=== PATIENT | male | born 1955 | race African-American/Black ===

== ENCOUNTER 2017-06-18 10:10 | Inpatient (IN) | payer OTHER ==
[2017-06-16 11:21] LABS: BASOPHILS % 0.2 % (0.0-1.0); EOSINOPHILS % 0.9 % (0.0-6.0); HEMOGLOBIN 14.3 g/dL (14.0-18.0); LYMPHOCYTES # (AUTO) 1.3 (1.0-3.2); LYMPHOCYTES % 31.2 % (18.0-39.1); MEAN CORPUSCULAR HEMOGLOBIN 29.3 pg (28-32); MEAN CORPUSCULAR HGB CONC 33.3 g/dL (31-35); MEAN CORPUSCULAR VOLUME 88.1 fL (81-99); MONOCYTES # (AUTO) 0.4 (0.2-0.8); MONOCYTES % 9.8 % (4.4-11.3); NEUTROPHILS # (AUTO) 2.5 (2.1-6.9); NEUTROPHILS % 57.7 % (38.7-80.0); PLATELET COUNT 190 x10e3/uL (140-360); RED BLOOD COUNT 4.88 x10e6/uL (4.3-5.7); RED CELL DISTRIBUTION WIDTH 13.2 % (11.7-14.4)
[2017-06-16 11:42] LABS: ALANINE AMINOTRANSFERASE 24 IU/L (0-55); ALBUMIN/GLOBULIN RATIO 1.2 (0.8-2.0); ALKALINE PHOSPHATASE 58 IU/L (40-150); ANION GAP 12.7 mmol/L (8-16); BLOOD UREA NITROGEN 10 mg/dL (7-26); BUN/CREATININE RATIO 9 (6-25); CALCIUM 9.3 mg/dL (8.4-10.2); CARBON DIOXIDE 27 mmol/L (22-29); CHLORIDE 105 mmol/L (98-107); CREATININE, SERUM 1.11 mg/dL (0.72-1.25); EST GLOMERULAR FILTRATION RATE > 60 ML/MIN (60-); GLUCOSE 83 mg/dL (74-118); POTASSIUM 4.7 mmol/L (3.5-5.1); SODIUM 140 mmol/L (136-145)
[~2017-06-18] VITALS: Ht 172.7 cm; Wt 86.2 kg
[~2017-06-18 10:10] MED LIST: AVODART PO; CARDURA PO; DOXAZOSIN MESYLA4 MG PO; GREEN TEA1 EACH PO; MULTIVITAMIN PO; NIACIN PO; PANTOPRAZOLE SO40 MG PO; SAW PALMETTO PO; VALTREX PO
[2017-06-18] MEDS ORDERED: CEFAZOLIN SOD 1 GM/NS 50ML 50 ML IV ONE (11:27)
[2017-06-18] MEDS ORDERED: BACITRACIN 50,000 UNIT VIAL ONE (14:22)
[2017-06-18] MEDS ORDERED: ACETAMINOPHEN 1000 MG/100 ML 100 ML IV ONE (14:51)
[2017-06-18] MEDS ORDERED: DIPHENHYDRAMINE HCL INJ 50 MG/ML VIAL IM PRN (16:45)
[2017-06-18] MEDS ORDERED: NALOXONE HCL INJ 0.4 MG/ML AMP IV PRN (16:45)
[2017-06-18] MEDS ORDERED: ONDANSETRON HCL INJ 2 MG/ML VIAL IV PRN (16:45)
[2017-06-18] MEDS ORDERED: ACETAMINOPHEN 1000 MG/100 ML IV PRN (16:45)
[2017-06-18] MEDS ORDERED: MORPHINE SULFATE 1 MG/ML 30ML PCA ONE (16:52)
[2017-06-18] MEDS: DOCUSATE SODIUM 100 MG CAP PO SCH (17:00)
[2017-06-18] MEDS ORDERED: MORPHINE SULFATE 5 MG/ML VIAL ONE (17:16)
[2017-06-18] MEDS: MORPHINE SULFATE 1 MG/ML 30ML PCA IV PRN (17:17)
[2017-06-18] MEDS ORDERED: HYDROMORPHONE 2MG/ML INJ ONE (17:44)
[2017-06-18] MEDS: D5.45%NS/KCL 20MEQ 1,000 ML IV SCH (18:00)
[2017-06-18] MEDS ORDERED: LIDOCAINE HCL 2% LOCAL INJ 5 ML SDV VIAL INJ ONE (18:51)
[2017-06-18] MEDS ORDERED: DEXAMETHASONE SOD PHOS INJ 4 MG/ML VIAL ONE (18:51)
[2017-06-18] MEDS ORDERED: SEVOFLURANE INHAL SOLN 250 ML PEN BTL ONE (18:51)
[2017-06-18] MEDS ORDERED: PROPOFOL IV EMULSION 10 MG/ML 20 ML VIAL ONE (18:51)
[2017-06-18] MEDS ORDERED: ONDANSETRON HCL INJ 2 MG/ML VIAL ONE (18:51)
[2017-06-18] MEDS ORDERED: ROCURONIUM BROMIDE 10 MG/ML 5ML VIAL ONE (18:51)
[2017-06-18] MEDS ORDERED: MIDAZOLAM HCL 2 MG/2 ML VIAL ONE (19:04)
[2017-06-18] MEDS ORDERED: FENTANYL CITRATE/PF 100MCG/2 ML INJ ONE (19:04)
[2017-06-18 19:24] VITALS: BP 131/73
[2017-06-18 19:42] VITALS: BP 135/77
--- NOTE | 2017-06-18 19:56 | History and Physical ---
PROFESSIONAL HOUSING CONSULTANT: Dr. Ousmane Garcia. SURGEON: Dr. Ousmane Garcia. Patient is status post bilateral pelvic lymphadenectomy for dissection for prostate cancer. HISTORY OF PRESENT ILLNESS: Patient is a pleasant 53-year-old male. He is status post bilateral pelvic lymphadenectomy secondary to his prostate cancer. The patient is otherwise stable. He has history of enlarged prostate. As well, he has history of TURP previously. The patient is now status post TURP procedure and also cystoscopy. He is comfortable. Patient is on IV fluids and PUBLIC INFORMATION OFFICER. He is stable at this time. PAST MEDICAL HISTORY: Enlarged prostate and prostate cancer. PAST SURGICAL HISTORY: Prior to this admission was during childhood he had a ruptured hernia. SOCIAL HISTORY: Patient does not smoke or use alcohol. No recreational drugs. ALLERGIES: TO IBUPROFEN. HOME MEDICATIONS: Protonix and . REVIEW OF SYSTEMS: Postoperative pain. PHYSICAL EXAMINATION VITAL SIGNS: Temperature is 98. Blood pressure 120/62. Pulse rate is 60. Respirations 18. GENERAL: Exam the patient is not acute distress. He is awake. HEENT: Normocephalic, atraumatic. Anicteric. NECK: Supple grossly. No JVD, carotid bruits, lymphadenopathy. PULMONARY: Diminished breath sounds without any wheezes or rales. CARDIOVASCULAR: S1, S2. Regular rate, rhythm. ABDOMEN: Soft. Postop. EXTREMITIES: No cyanosis or edema. NEUROLOGIC EXAM: There is no gross focal deficit. LABORATORY: Still pending. IMPRESSION 1. Status post cystoscopy with bilateral pelvic lymphadenectomy. 2. Baseline prostate cancer. 3. Baseline benign prostatic hypertrophy. PLAN: Continue with postoperative care. Incentive spirometry. Repeated lab work in the morning. Will monitor the patient closely. PT/OT in the morning. Surgical follow up by his urologist, Dr. Ousmane Garcia. Job#: [id number] CASTILLO
[2017-06-18] MEDS: CEFAZOLIN SOD 1 GM in WATER STERILE 10ML VIAL 10 ML IV SCH (20:00)
[2017-06-18] MEDS: PANTOPRAZOLE SOD 40 MG TABEC PO SCH (20:00)
[2017-06-18] MEDS: DOXAZOSIN MESYLATE 2 MG TAB PO SCH (20:00)
[2017-06-18] MEDS ORDERED: CEFAZOLIN SOD 1 GM/NS 50ML 50 ML IV SCH (22:00)
[2017-06-18] MEDS ORDERED: VALTREX500 MG PO (23:58)
[2017-06-19] MEDS ORDERED: VALACYCLOVIR HCL 500 MG TAB PO PRN
[2017-06-19 00:16] VITALS: BP 109/64
[2017-06-19] MEDS: D5.45%NS/KCL 20MEQ 1,000 ML IV SCH ×4 (01:30→22:31)
[2017-06-19] MEDS: CEFAZOLIN SOD 1 GM in WATER STERILE 10ML VIAL 10 ML IV SCH ×3 (03:41→20:23)
[2017-06-19 04:58] VITALS: BP 108/63
[2017-06-19 06:58] LABS: BASOPHILS % 0.2 % (0.0-1.0); EOSINOPHILS % 0.7 % (0.0-6.0); HEMATOCRIT 37.2 % (38.2-49.6); HEMOGLOBIN 12.1 g/dL (14.0-18.0); LYMPHOCYTES # (AUTO) 1.1 (1.0-3.2); MEAN CORPUSCULAR HGB CONC 32.5 g/dL (31-35); MEAN CORPUSCULAR VOLUME 89.2 fL (81-99); MONOCYTES # (AUTO) 0.5 (0.2-0.8); MONOCYTES % 9.3 % (4.4-11.3); NEUTROPHILS # (AUTO) 3.7 (2.1-6.9); NEUTROPHILS % 68.4 % (38.7-80.0); PLATELET COUNT 163 x10e3/uL (140-360); RED BLOOD COUNT 4.17 x10e6/uL (4.3-5.7); RED CELL DISTRIBUTION WIDTH 13.4 % (11.7-14.4)
[2017-06-19 07:18] LABS: ANION GAP 7.9 mmol/L (8-16); BLOOD UREA NITROGEN 5 mg/dL (7-26); BUN/CREATININE RATIO 5 (6-25); CALCIUM 8.2 mg/dL (8.4-10.2); CARBON DIOXIDE 30 mmol/L (22-29); CHLORIDE 106 mmol/L (98-107); CREATININE, SERUM 1.01 mg/dL (0.72-1.25); EST GLOMERULAR FILTRATION RATE > 60 ML/MIN (60-); GLUCOSE 118 mg/dL (74-118); POTASSIUM 3.9 mmol/L (3.5-5.1); SODIUM 140 mmol/L (136-145)
[2017-06-19 08:35] VITALS: BP 99/58
[2017-06-19] MEDS: DOCUSATE SODIUM 100 MG CAP PO SCH ×2 (09:00→16:46)
[2017-06-19] MEDS: MORPHINE SULFATE 1 MG/ML 30ML PCA IV PRN (09:50)
[2017-06-19] MEDS ORDERED: HYDROCODONE/APAP 7.5MG-325MG 1 EA TAB PO PRN (10:15)
[2017-06-19] MEDS ORDERED: ONDANSETRON HCL 4 MG ORAL DISINTEGRATING TAB PO PRN (10:15)
[2017-06-19] MEDS ORDERED: HYDROMORPHONE 1MG/1ML INJ IV PRN (10:30)
[2017-06-19 16:28] VITALS: BP 121/65
[2017-06-19] MEDS: ACETAMINOPHEN/CODEINE 300MG - 30MG TAB PO PRN (16:46)
[2017-06-19] MEDS: CALCIUM CARBONATE 500 MG CHEWABLE TABS PO SCH (17:21)
[2017-06-19] MEDS: PANTOPRAZOLE SOD 40 MG TABEC PO SCH (20:23)
[2017-06-19] MEDS: DOXAZOSIN MESYLATE 2 MG TAB PO SCH (20:23)
[2017-06-19 21:00] VITALS: BP 122/59
[2017-06-20 00:23] VITALS: BP 141/81
[2017-06-20] MEDS: CEFAZOLIN SOD 1 GM in WATER STERILE 10ML VIAL 10 ML IV SCH ×3 (04:06→20:45)
[2017-06-20 04:53] VITALS: BP 156/79
[2017-06-20 08:00] VITALS: BP 130/75
[2017-06-20 08:15] LABS: BASOPHILS % 0.2 % (0.0-1.0); EOSINOPHILS % 0.4 % (0.0-6.0); HEMATOCRIT 37.6 % (38.2-49.6); HEMOGLOBIN 12.6 g/dL (14.0-18.0); LYMPHOCYTES # (AUTO) 0.7 (1.0-3.2); LYMPHOCYTES % 14.5 % (18.0-39.1); MEAN CORPUSCULAR HEMOGLOBIN 29.3 pg (28-32); MEAN CORPUSCULAR HGB CONC 33.5 g/dL (31-35); MEAN CORPUSCULAR VOLUME 87.4 fL (81-99); MONOCYTES # (AUTO) 0.6 (0.2-0.8); MONOCYTES % 12.7 % (4.4-11.3); NEUTROPHILS # (AUTO) 3.6 (2.1-6.9); NEUTROPHILS % 71.8 % (38.7-80.0); PLATELET COUNT 155 x10e3/uL (140-360); RED CELL DISTRIBUTION WIDTH 13.5 % (11.7-14.4)
[2017-06-20 08:38] LABS: ANION GAP 10.6 mmol/L (8-16); BLOOD UREA NITROGEN < 5 mg/dL (7-26); BUN/CREATININE RATIO 5 (6-25); CALCIUM 8.6 mg/dL (8.4-10.2); CARBON DIOXIDE 25 mmol/L (22-29); CHLORIDE 107 mmol/L (98-107); CREATININE, SERUM 0.92 mg/dL (0.72-1.25); EST GLOMERULAR FILTRATION RATE > 60 ML/MIN (60-); GLUCOSE 107 mg/dL (74-118); POTASSIUM 3.6 mmol/L (3.5-5.1); SODIUM 139 mmol/L (136-145)
[2017-06-20] MEDS: CALCIUM CARBONATE 500 MG CHEWABLE TABS PO SCH ×2 (09:05→16:12)
[2017-06-20] MEDS: DOCUSATE SODIUM 100 MG CAP PO SCH ×2 (09:05→16:12)
[2017-06-20] MEDS: ACETAMINOPHEN/CODEINE 300MG - 30MG TAB PO PRN ×2 (09:05→16:13)
[2017-06-20 12:00] VITALS: BP 129/79
[2017-06-20] MEDS: D5.45%NS/KCL 20MEQ 1,000 ML IV SCH (12:00)
[2017-06-20 16:09] VITALS: BP_SYST 125; BP_SYST 131; BP_DIAS 72; BP_DIAS 83
[2017-06-20] MEDS ORDERED: HYDROMORPHONE 1MG/1ML INJ IV PRN (16:30)
[2017-06-20 19:44] VITALS: BP 127/69
[2017-06-20] MEDS: DOXAZOSIN MESYLATE 2 MG TAB PO SCH (20:45)
[2017-06-20] MEDS: PANTOPRAZOLE SOD 40 MG TABEC PO SCH (20:45)
[2017-06-21 00:12] VITALS: BP 122/84
[2017-06-21] MEDS: CEFAZOLIN SOD 1 GM in WATER STERILE 10ML VIAL 10 ML IV SCH (04:32)
[2017-06-21 05:11] VITALS: BP 133/85
[2017-06-21 07:28] LABS: BASOPHILS % 0.2 % (0.0-1.0); EOSINOPHILS % 0.7 % (0.0-6.0); HEMATOCRIT 36.7 % (38.2-49.6); HEMOGLOBIN 12.4 g/dL (14.0-18.0); LYMPHOCYTES # (AUTO) 0.7 (1.0-3.2); LYMPHOCYTES % 12.1 % (18.0-39.1); MEAN CORPUSCULAR HEMOGLOBIN 29.6 pg (28-32); MEAN CORPUSCULAR HGB CONC 33.8 g/dL (31-35); MEAN CORPUSCULAR VOLUME 87.6 fL (81-99); MONOCYTES # (AUTO) 0.6 (0.2-0.8); NEUTROPHILS # (AUTO) 4.5 (2.1-6.9); NEUTROPHILS % 76.7 % (38.7-80.0); PLATELET COUNT 150 x10e3/uL (140-360); RED BLOOD COUNT 4.19 x10e6/uL (4.3-5.7); RED CELL DISTRIBUTION WIDTH 13.4 % (11.7-14.4)
[2017-06-21 07:49] LABS: BLOOD UREA NITROGEN 6 mg/dL (7-26); BUN/CREATININE RATIO 6 (6-25); CALCIUM 8.8 mg/dL (8.4-10.2); CARBON DIOXIDE 25 mmol/L (22-29); CHLORIDE 104 mmol/L (98-107); CREATININE, SERUM 0.93 mg/dL (0.72-1.25); EST GLOMERULAR FILTRATION RATE > 60 ML/MIN (60-); GLUCOSE 91 mg/dL (74-118); SODIUM 137 mmol/L (136-145)
[2017-06-21 07:55] VITALS: BP 136/86
[2017-06-21 07:59] VITALS: BP 132/75
[2017-06-21] MEDS: CALCIUM CARBONATE 500 MG CHEWABLE TABS PO SCH (08:23)
[2017-06-21] MEDS: DOCUSATE SODIUM 100 MG CAP PO SCH (08:23)
[2017-06-21 08:57] LABS: MAGNESIUM 1.7 MG/DL (1.3-2.1); PHOSPHORUS 2.5 MG/DL (2.3-4.7)
[2017-06-21] MEDS ORDERED: TYLENOL WITH C1 EACH PO (09:03)
[2017-06-21] MEDS ORDERED: CIPRO500 MG PO (09:03)
[2017-06-21] MEDS ORDERED: ZOFRAN ODT4 MG SL (09:03)
[2017-06-21] MEDS ORDERED: COLACE100 MG PO (09:03)
--- NOTE | 2017-06-21 09:16 | Discharge Summary ---
MEDICAL OFFICE TECHNICIAN: Dr. Ousmane Garcia FINAL DIAGNOSES 1. Status post cystoscopy with bilateral pelvic lymphadenectomy. 2. Baseline prostate cancer. 3. Postoperative pain. 4. Enlarged prostate. SUMMARY: A 62-year-old male with baseline enlarged prostate and prostate cancer. Patient is now status post bilateral pelvic lymphadenectomy secondary to prostate cancer. Postoperatively, the patient has a slow recovery due to pain. The patient was admitted for pain control. He has difficulty walking, but now much improved. He is able to tolerate his diet. At this time, he is stable. He will go home today. Follow up with Dr. Garcia in 2 to 3 weeks. Patient will resume his home medications, pain control, nausea and vomiting medication as needed. The patient is stable, discharged home today. Job#: [id number] ROBERT
[2017-06-21] MEDS: ACETAMINOPHEN/CODEINE 300MG - 30MG TAB PO PRN (09:36)
--- NOTE | 2017-08-12 07:07 | Operative Report ---
DATE OF PROCEDURE: June 18, 2017 PREOPERATIVE DIAGNOSES 1. High-grade prostate cancer. 2. BPH. POSTOPERATIVE DIAGNOSES 1. High-grade prostate cancer. 2. BPH. OPERATIONS PERFORMED 1. Flexible cystourethroscopy. 2. Bilateral pelvic lymphadenectomies (separate procedure performed for the prostate cancer and metastatic evaluation). ANESTHESIA: General. COMPLICATIONS: None. CLINICAL SUMMARY: Jt Huynh is a 62-year-old man who was diagnosed with high-grade prostate cancer. He also has had long-standing BPH and is status post prior prostatectomy. He is brought for the above procedures. He is aware of the risks of bleeding, infection, injury to adjacent structures, need for additional procedures, and elected to proceed. OPERATIVE PROCEDURE IN DETAIL: Informed consent was verified. Jt Huynh was properly identified and taken to the operating room and placed on the operating table in the supine position. Anesthesia was uneventfully begun. The patient's abdomen and genitalia were then shaved, prepared and draped in the usual sterile fashion. The flexile cystourethroscope was inserted in the patient's urethra. It was guided down an unremarkable urethra past a normal sphincteric region into the prostate bed, which was significant for being status post transurethral resection. There was residual anterior tissue that was caving in and visually obstructing the urinary channel. There was also a band posteriorly at the bladder neck that could potentially interfere with voiding and Scott catheterization. Panendoscopy of the urinary bladder revealed no suspicious mucosal lesions. No tumors. No stones and no diverticula. Trabeculations were noted. The cystoscope was withdrawn. Scott catheter was placed. An infraumbilical midline incision was then made and carried through all layers of the abdominal wall until we developed a space of Retzius in the perivesical space. Next, an extraperitoneal approach was utilized. A self-retaining retractor was utilized. The margins of pelvic lymph node dissection occluded the external iliac veins at the anterolateral margin. The obturator fossa as the posteromedial margin was performed. Kareem's ligament as the distal margin and the bifurcation of the common iliac as the proximal margin. Hemoclips were utilized to control blood vessels and lymphatic channels. Excellent hemostasis was achieved throughout the procedure. Copious irrigation was performed. A Federico drain was placed through a separate stab incision and secured to the skin with a nylon suture. The incision was then approximated in layers utilizing Vicryl suture to approximate the rectus muscles in an interrupted fashion. The fascia was approximated with heavy Vicryl suture in an interrupted [id number] fashion. The skin was approximated with skin marcela. Sterile dressings were applied. The patient was uneventfully reversed from anesthesia and taken to the recovery room in stable condition. There were no complications to the procedure. Patient tolerated the procedure well. Sponge, needle and instrument counts were correct times 2 at the end of the case. For estimated blood loss, please refer to the anesthetic record. Will plan on following the patient throughout his postoperative course and of course on a life-long basis. Job#: [id number] RI
== END 2017-06-21 09:42 | disposition home or self-care (01) | DRG 716 ==
LOC: OR 10:10 → MED/SURG 16:47
PROVIDERS: ADMIT Internal Medicine; ATTEND Internal Medicine
PROC: 07BC0ZX Excision of Pelvis Lymphatic, Open Approach, Diagnostic (ICD-10-PCS; principal; 2017-06-18 14:44)
DX: C61 Malignant neoplasm of prostate (principal); G89.18 Other acute postprocedural pain; N40.0 Benign prostatic hyperplasia without lower urinary tract symptoms; K21.9 Gastro-esophageal reflux disease without esophagitis
CPT/HCPCS: 36415; 80048; 80053; 83735; 84100; 85025; 86850; 86900; 88305; 93005; J0690; J1100; J2001; J2250; J2270; J2405